=== PATIENT | male | born 1955 | race African-American/Black ===

== ENCOUNTER 2020-03-05 20:37 | Inpatient (IN) | payer SELFPAY ==
[~2020-03-05] VITALS: Ht 165.1 cm; Wt 48.1 kg
[2020-03-05] MEDS ORDERED: FUROSEMIDE40 MG ORAL (20:38)
[2020-03-05] MEDS ORDERED: SPIRONOLACTONE100 MG ORAL (20:38)
[2020-03-05 20:44] VITALS: BP 175/113
[2020-03-05] MEDS ORDERED: dilTIAZem HCl 25mg/5ml Inj IVP ONE ×2 (20:45→21:00)
[2020-03-05] MEDS ORDERED: dilTIAZem HCl 125mg/25ml Inj IVPB ONE (20:58)
--- NOTE | 2020-03-05 21:01 | Emergency Room Report ---
History of Present Illness General Chief Complaint: Chest Pain Source: Patient Present Illness HPI Disclaimer: Please note that this report is being documented using [employer] technology. This can lead to erroneous entry secondary to incorrect interpretation by the dictating instrument. HPI: 64-year-old male history of hypertension, cardiac arrhythmia presents for evaluation of chest pain. Patient states he has been feeling fatigued for the past 3 days but this afternoon began to experience palpitations, chest pressure and shortness of breath. EMS found him tachycardic into the 140s but vital signs otherwise stable. He was complaining of mild shortness of breath but no hypoxia was noted. Patient is taking digoxin but is been without his medications for the past 3 weeks. 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 He states in the he had an intra-cardiac procedure done which sounds like he repaired a VSD. He is also told he might have some heart failure. 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 EOMI. Cardiovascular: Tachycardic. Resp: Tachypnea. No cough, wheezing or crackles appreciated Abdomen: Abdomen is soft, nondistended. Nontender Skin: Intact. No abrasions, laceration or rash over the exposed skin MSK: Normal tone and bulk. Moving all extremities. No obvious deformity. Neuro: Awake and alert. Mentating appropriately. Procedures Critical Care Time Critical Care Time Total critical care time: Approximately 45 minutes Due to a high probability of clinically significant, life threatening deterioration, the patient required the highest level of preparedness to intervene emergently and I personally spent this critical care time directly and personally managing the patient. This critical care time included obtaining a history, examining the patient, pulse oximetry, ordering and reviewing studies , ordering treatments, evaluating response to treatment and updating management plan as needed, frequent reassessment and discussion with other providers as well as arranging for ultimate disposition. This critical to care time was performed to assess and manage the high probability of life-threatening deterioration that could result in multiorgan failure. This critical care time is separate from the separately billable procedures and treating other patients. Medical Decision Making Diagnostic Impression: Primary Impression: Chest pain Additional Impressions: Atrial flutter with rapid ventricular response Pneumonia Elevated troponin level BRIGHT (acute kidney injury) ER Course 64-year-old male history of unspecified arrhythmia and prior history of cardiac surgery in the presents for evaluation of palpitations. Patient found to be in rapid atrial flutter with apparent 2-1 conduction. Vital signs were otherwise stable patient is afebrile though complaining of shortness of breath for the past 3 days. He has been without his digoxin, furosemide or other medications for 3 months after he lost his [employer] insurance. Patient was given 2 IV boluses of Cardizem which brought his heart rates below 90 bpm. He was loaded with 60 mg ordered Cardizem as well. Labs otherwise show an acute kidney injury with elevated BUN/creatinine, elevated troponin and BN peptide. Patient's x-ray is concerning for right lower lobe pneumonia and cardiomegaly with mild vascular congestion bilaterally. Patient was treated with Zosyn and blood cultures were sent. He is stable condition currently feeling better though will be sent to the stepdown unit for close monitoring and further care. He is admitted to panel physician, Dr. Thao. Laboratory Tests Test 03/05/20 20:45 White Blood Count 7.7 K/UL (4.8-10.8) Red Blood Count 4.15 M/UL (4.70-6.10) L Hemoglobin 12.9 G/DL (14.2-18.0) L Hematocrit 40.0 % (42.0-52.0) L Mean Corpuscular Volume 96 FL (80-99) Mean Corpuscular Hemoglobin 31.0 PG (27.0-31.0) Mean Corpuscular Hemoglobin Concent 32.2 G/DL (32.0-36.0) Red Cell Distribution Width 13.5 % (11.6-14.8) Platelet Count 172 K/UL (150-450) Mean Platelet Volume 8.0 FL (6.5-10.1) Neutrophils (%) (Auto) 69.5 % (45.0-75.0) Lymphocytes (%) (Auto) 20.5 % (20.0-45.0) Monocytes (%) (Auto) 8.7 % (1.0-10.0) Eosinophils (%) (Auto) 0.3 % (0.0-3.0) Basophils (%) (Auto) 0.9 % (0.0-2.0) Prothrombin Time 16.9 SEC (9.30-11.50) H Prothrombin Time INR 1.6 (0.9-1.1) H Activated Partial Thromboplast Time 28 SEC (23-33) Sodium Level 138 MMOL/L (136-145) Potassium Level 4.7 MMOL/L (3.5-5.1) Chloride Level 103 MMOL/L (98-107) Carbon Dioxide Level 21 MMOL/L (21-32) Anion Gap 15 mmol/L (5-15) Blood Urea Nitrogen 44 mg/dL (7-18) H Creatinine 1.5 MG/DL (0.55-1.30) H Estimated Glomerular Filtration Rate 47.1 mL/min (>60) Glucose Level 128 MG/DL (74-106) H Calcium Level 8.1 MG/DL (8.5-10.1) L Total Bilirubin 2.4 MG/DL (0.2-1.0) H Direct Bilirubin 0.9 MG/DL (0.0-0.3) H Aspartate Amino Transferase (AST) 97 U/L (15-37) H Alanine Aminotransferase (ALT) 88 U/L (12-78) H Alkaline Phosphatase 142 U/L (46-116) H Troponin I 0.285 ng/mL (0.000-0.056) Pro-B-Type Natriuretic Peptide 7030 pg/mL (0-125) H Total Protein 7.5 G/DL (6.4-8.2) Albumin 3.3 G/DL (3.4-5.0) L Globulin 4.2 g/dL Albumin/Globulin Ratio 0.8 (1.0-2.7) L Digoxin Level < 0.2 NG/ML (0.5-2.0) L Microbiology Date/Time Source Procedure Growth Status 8/25/20 20:45 Nasopharynx SARS-CoV-2 RdRp Gene Assay - Final Complete EKG Diagnostic Results EKG Time: 20:35 Other Impression Atrial flutter with apparent 2-1 conduction. ASA given to the pt in ED: Yes PA Scribe Text EKG post rate control Time: 2120 Impression: Persistent atrial flutter with variable AV block. Rate now controlled at 79 bpm. [place] is within normal limits. No acute ST segment changes apparent. Intervals within normal limits. Rhythm Strip Diag. Results Rhythm Strip Time: 20:35 EP Interpretation: yes Rate: 140s Chest X-Ray Diagnostic Results Chest X-Ray Diagnostic Results : Chest X-Ray Ordered: Yes # of Views/Limited/Complete: 1 View Indication: Shortness of Breath EP Interpretation: Yes Interpretation: other - Right lower lobe infiltrate, cardiomegaly, mild vascular congestion Impression: Other - Right lower lobe pneumonia, cardiomegaly, vascular congestion Electronically Signed by: Electronically signed by Dr. Kevin Ibarra Last Vital Signs Date Time Temp Pulse Resp B/P (MAP) Pulse Ox O2 Delivery O2 Flow Rate FiO2 03/05/20 20:48 148 166/97 03/05/20 20:34 98.2 18 93 Room Air Disposition: ADMITTED INPATIENT Condition: Serious Kevin Ibarra MD Mar 05, 2020 21:01
[2020-03-05 21:14] LABS: BASOPHILS % (AUTO) 0.9 % (0.0-2.0); EOSINOPHILS % (AUTO) 0.3 % (0.0-3.0); HEMOGLOBIN 12.9 G/DL (14.2-18.0); LYMPHOCYTES % (AUTO) 20.5 % (20.0-45.0); MEAN CORPUSCULAR VOLUME 96 FL (80-99); MONOCYTES % (AUTO) 8.7 % (1.0-10.0); NEUTROPHILS % (AUTO) 69.5 % (45.0-75.0); PLATELET COUNT 172 K/UL (150-450); RED BLOOD COUNT 4.15 M/UL (4.70-6.10); RED CELL DISTRIBUTION WIDTH 13.5 % (11.6-14.8); WHITE BLOOD COUNT 7.7 K/UL (4.8-10.8)
[2020-03-05] MEDS ORDERED: dilTIAZem HCl 60mg tab ORAL ONE (21:15)
[2020-03-05 21:17] LABS: INR 1.6 (0.9-1.1)
[2020-03-05 21:21] LABS: ANION GAP 15 mmol/L (5-15); BLOOD UREA NITROGEN 44 mg/dL (7-18); CALCIUM 8.1 MG/DL (8.5-10.1); CARBON DIOXIDE 21 MMOL/L (21-32); CHLORIDE 103 MMOL/L (98-107); CREATININE 1.5 MG/DL (0.55-1.30); POTASSIUM 4.7 MMOL/L (3.5-5.1); SODIUM 138 MMOL/L (136-145)
[2020-03-05 21:32] LABS: ALANINE AMINOTRANSFERASE 88 U/L (12-78); ALBUMIN 3.3 G/DL (3.4-5.0); ALBUMIN/GLOBULIN RATIO 0.8 (1.0-2.7); ALKALINE PHOSPHATASE 142 U/L (46-116); ASPARTATE AMINO TRANSFERASE 97 U/L (15-37); BILIRUBIN,TOTAL 2.4 MG/DL (0.2-1.0)
[2020-03-05 21:35] LABS: BILIRUBIN,DIRECT 0.9 MG/DL (0.0-0.3)
[2020-03-05 21:51] VITALS: BP 143/75
[2020-03-05] MEDS ORDERED: Piperacillin/Tazobactam 3.375 GM in NS 110 ML IVPB ONE (22:30)
[2020-03-05] MEDS ORDERED: DIGOXIN250 MCG ORAL (22:48)
[2020-03-05 23:00] VITALS: BP 180/84
[2020-03-06 00:54] VITALS: BP 168/62
[2020-03-06] MEDS ORDERED: Vancomycin 750mg/NS 275ml IVPB SCH ×2 (03:00)
[2020-03-06 04:00] VITALS: BP 145/73
[2020-03-06] MEDS: Piperacillin/Tazobactam 3.375 GM in NS 110 ML IVPB SCH ×3 (05:00→21:18)
[2020-03-06] MEDS: dilTIAZem HCl 60mg tab ORAL SCH ×3 (05:01→21:17)
[2020-03-06 05:46] LABS: HEMATOCRIT 41.1 % (42.0-52.0); HEMOGLOBIN 13.2 G/DL (14.2-18.0); MEAN CORPUSCULAR VOLUME 95 FL (80-99); PLATELET COUNT 162 K/UL (150-450); RED BLOOD COUNT 4.31 M/UL (4.70-6.10); RED CELL DISTRIBUTION WIDTH 12.8 % (11.6-14.8); WHITE BLOOD COUNT 8.5 K/UL (4.8-10.8)
[2020-03-06 06:13] LABS: ALANINE AMINOTRANSFERASE 100 U/L (12-78); ALBUMIN 3.4 G/DL (3.4-5.0); ALBUMIN/GLOBULIN RATIO 0.8 (1.0-2.7); ALKALINE PHOSPHATASE 145 U/L (46-116); ANION GAP 12 mmol/L (5-15); ASPARTATE AMINO TRANSFERASE 106 U/L (15-37); BILIRUBIN,TOTAL 2.6 MG/DL (0.2-1.0); BLOOD UREA NITROGEN 44 mg/dL (7-18); CALCIUM 8.5 MG/DL (8.5-10.1); CARBON DIOXIDE 25 MMOL/L (21-32); CHLORIDE 103 MMOL/L (98-107); CHOLESTEROL 97 MG/DL (< 200); CREATININE 1.5 MG/DL (0.55-1.30); HDL CHOLESTEROL 25 MG/DL (40-60); POTASSIUM 4.2 MMOL/L (3.5-5.1); SODIUM 140 MMOL/L (136-145); TRIGLYCERIDES 48 MG/DL (30-150)
[2020-03-06 06:16] LABS: BILIRUBIN,DIRECT 0.9 MG/DL (0.0-0.3)
[2020-03-06 08:00] VITALS: BP 128/79
[2020-03-06] MEDS ORDERED: Aspirin Baby 81mg ORAL SCH (09:00)
[2020-03-06] MEDS ORDERED: Spironolactone 50mg tab ORAL SCH (09:00)
--- NOTE | 2020-03-06 09:33 | Diagnostic Imaging Report ---
Indication: Chest pain Technique: XRAY Chest 1v Comparison: None Findings: Heart is enlarged. Mediastinal contours are sharp. There are atherosclerotic vascular calcifications in the aorta. There is pulmonary vessel congestion and perihilar prominence. There is a small right pleural effusion with adjacent opacities at the right base. There is a square-shaped radiodensity projecting over the anterior right first rib which may be external to the patient. There are degenerative changes in the spine. Impression: * Cardiomegaly and pulmonary vascular congestion/mild interstitial edema. * Small right pleural effusion. Adjacent opacities at the right base may related to compressive atelectasis. Pneumonia needs to be excluded clinically. * Square-shaped radiodensity projecting over the anterior right first rib. This may be external to the patient. Correlate with physical exam.
[2020-03-06] MEDS ORDERED: Digoxin 0.5mg/2ml Inj IVP SCH (11:00)
[2020-03-06 12:00] VITALS: BP 128/70
[2020-03-06] MEDS ORDERED: NS 275ml ONE (14:25)
[2020-03-06] MEDS ORDERED: Tubing IV Secondary IV ONE (14:25)
[2020-03-06 15:49] VITALS: BP 114/78
[2020-03-06] MEDS ORDERED: HYDROCHLOROTHIA25 MG ORAL (18:25)
[2020-03-06 20:00] VITALS: BP 147/68
[2020-03-06] MEDS ORDERED: Lisinopril 10mg tab ORAL ONE (23:15)
[2020-03-07] VITALS: BP 148/67
--- NOTE | 2020-03-07 00:45 | History and Physical Report ---
DATE OF ADMISSION: 03/05/2020 REASON FOR ADMISSION: Chest pain and rapid atrial flutter. HISTORY OF PRESENT ILLNESS: This 64-year-old male, who has a known history of structural heart disease. He underwent repair of a patent ductus arteriosus approximately 15 years ago. He ran out of medications several weeks ago as his insurance lapsed. He notes that he has had palpitations, chest pain, and some shortness of breath. He came to the emergency room and was noted to have have significantly elevated blood pressure and rapid atrial flutter. PAST MEDICAL HISTORY: As noted includes hypertension and a repair of PDA. ALLERGIES: None known. SOCIAL HISTORY: Negative for smoking, alcohol, or substance abuse. FAMILY HISTORY: Noncontributory. REVIEW OF SYSTEMS: Performed all negative other than noted above. PHYSICAL EXAMINATION: VITAL SIGNS: In the emergency room, blood pressure 175/113, pulse 148, respirations 18, and afebrile. Subsequently, 145/73, pulse 69, and respirations 24. NECK: Jugular venous pressure normal. LUNGS: Clear. CARDIAC: Irregularly irregular rhythm. Normal S1, S2. A 1/6 systolic murmur at base. ABDOMEN: Soft. EXTREMITIES: No edema. LABORATORY DATA: White count 7.7 and hemoglobin 12.9. Troponin 0.285. BUN 44 and creatinine 1.5. Potassium 4.7. Albumin 3.3. Pro-natriuretic peptide 7000. EKG with rapid atrial flutter, nonspecific ST change. Chest x-ray, pulmonary venous congestion and cardiomegaly. IMPRESSION: 1. Paroxysmal atrial flutter with rapid ventricular response. 2. Acute myocardial ischemia and possible [id number] myocardial infarction. 3. Acute on chronic systolic and diastolic congestive heart failure. 4. Acute versus chronic kidney injury. PLAN: 1. Intravenous diltiazem. 2. Maintenance dose digitalis. 3. Diuresis. 4. Anti-failure regimen. 5. Reassess for long-term anticoagulation. 6. An attempt to expand database. Lewis Thao M.D. DR: REZA JOB#: [id number] CC:
[2020-03-07] MEDS ORDERED: Vancomycin 750 MG in NS 275 ML IVPB SCH (03:00)
[2020-03-07 04:00] VITALS: BP 135/61
[2020-03-07] MEDS: dilTIAZem HCl 60mg tab ORAL SCH ×3 (05:50→22:00)
[2020-03-07] MEDS: Piperacillin/Tazobactam 3.375 GM in NS 110 ML IVPB SCH ×3 (06:24→21:26)
[2020-03-07 06:59] LABS: BASOPHILS % (AUTO) 0.6 % (0.0-2.0); EOSINOPHILS % (AUTO) 0.4 % (0.0-3.0); HEMATOCRIT 41.4 % (42.0-52.0); HEMOGLOBIN 13.6 G/DL (14.2-18.0); LYMPHOCYTES % (AUTO) 9.3 % (20.0-45.0); MEAN CORPUSCULAR VOLUME 95 FL (80-99); MONOCYTES % (AUTO) 9.5 % (1.0-10.0); NEUTROPHILS % (AUTO) 80.2 % (45.0-75.0); PLATELET COUNT 157 K/UL (150-450); RED BLOOD COUNT 4.37 M/UL (4.70-6.10); WHITE BLOOD COUNT 10.1 K/UL (4.8-10.8)
[2020-03-07 07:17] LABS: ALANINE AMINOTRANSFERASE 86 U/L (12-78); ALBUMIN 3.2 G/DL (3.4-5.0); ALBUMIN/GLOBULIN RATIO 0.8 (1.0-2.7); ALKALINE PHOSPHATASE 118 U/L (46-116); ANION GAP 3 mmol/L (5-15); ASPARTATE AMINO TRANSFERASE 66 U/L (15-37); BILIRUBIN,TOTAL 2.3 MG/DL (0.2-1.0); BLOOD UREA NITROGEN 35 mg/dL (7-18); CALCIUM 8.6 MG/DL (8.5-10.1); CARBON DIOXIDE 35 MMOL/L (21-32); CHLORIDE 105 MMOL/L (98-107); CREATININE 1.5 MG/DL (0.55-1.30); POTASSIUM 3.9 MMOL/L (3.5-5.1); SODIUM 143 MMOL/L (136-145)
[2020-03-07 07:32] LABS: BILIRUBIN,DIRECT 0.8 MG/DL (0.0-0.3)
[2020-03-07 08:00] VITALS: BP 121/52
[2020-03-07] MEDS: Spironolactone 50mg tab ORAL SCH (08:54)
[2020-03-07] MEDS: Lisinopril 10mg tab ORAL SCH (08:55)
[2020-03-07] MEDS: Aspirin Baby 81mg ORAL SCH (08:55)
[2020-03-07 12:00] VITALS: BP 121/57
[2020-03-07] MEDS ORDERED: Docusate 250mg cap ORAL SCH (12:30)
[2020-03-07] MEDS ORDERED: Milk of Magnesia 30ml Ud ORAL SCH (12:30)
[2020-03-07] MEDS ORDERED: Milk of Magnesia 30ml Ud ORAL PRN (12:30)
--- NOTE | 2020-03-07 14:09 | Diagnostic Imaging Report ---
Indication: Shortness of breath Technique: 2 views of the chest Comparison: 03/05/2020 single view chest Findings: Moderate size right pleural effusion is again demonstrated. Lateral view indicates that there is a smaller left pleural effusion as well. The lungs are clear. Previously demonstrated vascular congestion is no longer evident Prominent right pulmonary hilum again noted. Impression: Bilateral pleural effusions, right greater than left. That on the right was demonstrated previously and unchanged
[2020-03-07 16:00] VITALS: BP 111/50
[2020-03-07] MEDS: Docusate 100mg cap ORAL SCH (17:28)
[2020-03-07 20:00] VITALS: BP 111/69
[2020-03-08] VITALS: BP 129/60
--- NOTE | 2020-03-08 01:59 | Cardiology Progress Note ---
Subjective DATE OF SERVICE: Mar 07, 2020 Less SOB C/O constipation CXR (03/07) reveals no infiltrate. Resolved CHF. Right pleural eff'n (mod), and small left pleural eff'n. Objective Last 24 Hour Vital Signs Date Time Temp Pulse Resp B/P (MAP) Pulse Ox O2 Delivery O2 Flow Rate FiO2 03/08/20 00:00 74 03/08/20 00:00 98.1 74 18 129/60 (83) 98 03/08/20 00:00 Room Air 03/07/20 22:00 66 03/07/20 20:00 Room Air 03/07/20 20:00 97.9 58 16 111/69 (83) 98 03/07/20 20:00 58 03/07/20 16:00 Room Air 03/07/20 16:00 97.8 58 20 111/50 (70) 98 03/07/20 15:26 56 03/07/20 13:24 74 121/57 03/07/20 12:00 Room Air 03/07/20 12:00 98.1 73 20 121/57 (78) 100 03/07/20 11:44 67 03/07/20 08:55 121/52 03/07/20 08:00 Room Air 03/07/20 08:00 98.1 74 20 121/52 (75) 100 03/07/20 07:22 74 03/07/20 05:50 73 135/61 03/07/20 04:00 98.1 73 20 135/61 (85) 95 03/07/20 04:00 Room Air 03/07/20 04:00 73 RHYTHM: other LUNGS: diminished breath sounds - Rt CARDIAC: normal S1 and S2, irregularly irregular ABDOMEN: normal bowel sounds, soft EXTREMITIES: trace edema Laboratory Tests Test 03/07/20 06:25 White Blood Count 10.1 K/UL (4.8-10.8) Red Blood Count 4.37 M/UL (4.70-6.10) L Hemoglobin 13.6 G/DL (14.2-18.0) L Hematocrit 41.4 % (42.0-52.0) L Mean Corpuscular Volume 95 FL (80-99) Mean Corpuscular Hemoglobin 31.0 PG (27.0-31.0) Mean Corpuscular Hemoglobin Concent 32.7 G/DL (32.0-36.0) Red Cell Distribution Width 13.0 % (11.6-14.8) Platelet Count 157 K/UL (150-450) Mean Platelet Volume 7.8 FL (6.5-10.1) Neutrophils (%) (Auto) 80.2 % (45.0-75.0) H Lymphocytes (%) (Auto) 9.3 % (20.0-45.0) L Monocytes (%) (Auto) 9.5 % (1.0-10.0) Eosinophils (%) (Auto) 0.4 % (0.0-3.0) Basophils (%) (Auto) 0.6 % (0.0-2.0) Sodium Level 143 MMOL/L (136-145) Potassium Level 3.9 MMOL/L (3.5-5.1) Chloride Level 105 MMOL/L (98-107) Carbon Dioxide Level 35 MMOL/L (21-32) H Anion Gap 3 mmol/L (5-15) L Blood Urea Nitrogen 35 mg/dL (7-18) H Creatinine 1.5 MG/DL (0.55-1.30) H Estimat Glomerular Filtration Rate 57.1 mL/min (>60) Glucose Level 91 MG/DL (74-106) Calcium Level 8.6 MG/DL (8.5-10.1) Total Bilirubin 2.3 MG/DL (0.2-1.0) H Direct Bilirubin 0.8 MG/DL (0.0-0.3) H Aspartate Amino Transf (AST/SGOT) 66 U/L (15-37) H Alanine Aminotransferase (ALT/SGPT) 86 U/L (12-78) H Alkaline Phosphatase 118 U/L (46-116) H Troponin I 0.737 ng/mL (0.000-0.056) Pro-B-Type Natriuretic Peptide 3157 pg/mL (0-125) H Total Protein 7.4 G/DL (6.4-8.2) Albumin 3.2 G/DL (3.4-5.0) L Globulin 4.2 g/dL Albumin/Globulin Ratio 0.8 (1.0-2.7) L Microbiology Date/Time Source Procedure Growth Status 03/05/20 20:45 Blood Blood Culture - Preliminary NO GROWTH AFTER 48 HOURS Resulted 03/05/20 20:30 Blood Blood Culture - Preliminary NO GROWTH AFTER 48 HOURS Resulted 03/05/20 20:45 Nasopharynx SARS-CoV-2 RdRp Gene Assay - Final Complete EKG INTERPRETATION: 2D Echo reviewed Assessment/Plan Assessment/Plan No signs PNA Atrial flutter, chr - now rate controlled Pleural effusions Ac/chr systolic and diastolic CHF Hx PDA repair NSTE myocardial infarction Constipation DIuresis DC antimicrobials Continue diltiazem for rate control Titrate ACEi dosing Anti plt therapy; reassess risk:benefit of anticoagulation prior to discharge F/U troponin Bowel regimen Lewis Thao MD Mar 08, 2020 01:59
[2020-03-08 04:00] VITALS: BP 132/63
[2020-03-08 06:37] LABS: ANION GAP 5 mmol/L (5-15); BLOOD UREA NITROGEN 31 mg/dL (7-18); CALCIUM 8.1 MG/DL (8.5-10.1); CARBON DIOXIDE 32 MMOL/L (21-32); CHLORIDE 105 MMOL/L (98-107); CREATININE 1.3 MG/DL (0.55-1.30); SODIUM 141 MMOL/L (136-145)
[2020-03-08 08:00] VITALS: BP 133/56
[2020-03-08] MEDS: Spironolactone 50mg tab ORAL SCH (08:51)
[2020-03-08] MEDS: Aspirin Baby 81mg ORAL SCH (08:51)
[2020-03-08] MEDS: Docusate 100mg cap ORAL SCH (08:51)
[2020-03-08] MEDS: Lisinopril 10mg tab ORAL SCH (08:51)
[2020-03-08] MEDS ORDERED: dilTIAZem HCl CD 180mg cap ORAL SCH (09:00)
[2020-03-08] MEDS ORDERED: Furosemide 40mg tab ORAL SCH (09:00)
[2020-03-08 11:56] VITALS: BP 128/70
[2020-03-08] MEDS ORDERED: CARDIZEM CD180 MG ORAL (15:43)
[2020-03-08] MEDS ORDERED: ZESTRIL10 M1 ORAL (15:43)
[2020-03-08 16:00] VITALS: BP 128/60
[2020-03-08] MEDS ORDERED: Tubing IV Secondary IV ONE (17:13)
[2020-03-08] MEDS ORDERED: NS 275ml ONE (17:13)
[2020-03-09] MEDS ORDERED: Lisinopril 10mg tab ORAL SCH (09:00)
[2020-03-09] MEDS ORDERED: Spironolactone 25mg tab ORAL SCH (09:00)
--- NOTE | 2020-03-10 14:34 | Discharge Summary ---
Discharge Summary Discharge Summary _ DATE OF ADMISSION: 03/05/2020 DATE OF DISCHARGE: 03/08/2020 DISCHARGED BY: Dr. Lewis Thao BRIEF HOSPITAL COURSE: Patient is an 84-year-old male, who has a known history of structural heart disease. He underwent repair of a patent ductus arteriosus approximately 15 years ago. He ran out of medication several weeks ago as his insurance lapsed. He noted palpitations, chest pain and shortness of breath. EMS found him tachycardic into the 140s but vital signs were otherwise stable. Patient is on digoxin and furosemide but has been without his medications for the past 3 weeks. Upon evaluation at the ED, blood pressure was 175/113, heart rate 148. He was found to be in rapid atrial flutter with apparent 2-1 conduction. He was given 2 IV boluses of Cardizem which brought the heart rate below 90. He was loaded with 60 mg Cardizem p.o. Blood work showed acute kidney injury with elevated BUN and creatinine. Troponin was 0.285. proBNP was 7030. Chest x-ray was concerning for right lower lobe pneumonia and cardiomegaly with mild vascular congestion bilaterally. He was treated with Zosyn. Cultures were sent. He was admitted for evaluation of chest pain, rapid atrial flutter, pneumonia, elevated troponin and kidney injury. He was admitted to monitored floor. He was given intravenous diltiazem. He was continued on maintenance dose digitalis. He was given diuresis. He was placed on anti-failure regimen. He was given prophylaxis IV antibiotics. Repeat chest x-ray did not show any infiltrates. CHF resolved. He was continued on diuresis. Continued on diltiazem for rate control. He was given EVENS inhibitor's. Blood culture did not isolate any growth. Heart rate in good control. Patient was cleared for discharge home. To continue Cardizem 180 mg daily and lisinopril 20 mg daily. Continue Lasix and Spironolactone. Discontinue digoxin and hydrochlorothiazide. Patient was advised to follow-up with PMD. FINAL DIAGNOSES: Atrial flutter, chronicnow rate controlled Pleural effusion Acute on chronic systolic and diastolic CHF History of patent ductus arteriosus repair Non-ST elevated myocardial infarction Constipation DISPOSITION: Patient was discharged home. DISCHARGE MEDICATIONS: Refer to Discharge Medication List. DISCHARGE INSTRUCTIONS: Follow-up in a week. I have been assigned to complete a discharge summary on this account, I was not involved with the patient's management.--KIN Garland Jacqueline Robles NP Mar 10, 2020 14:34
== END 2020-03-08 17:14 | disposition home or self-care (01) | DRG 280 ==
LOC: EDBD 20:37 → EMR 21:00 → 2W 21:31 → EDBEDREQ 21:35 → EDBEDREQSVC 21:35 → EDBEDREQTM 21:35 → EDBEDREQ 21:49 → 2E 03-06 15:56
DX: I21.4 Non-ST elevation (NSTEMI) myocardial infarction (principal); I50.43 Acute on chronic combined systolic (congestive) and diastolic (congestive) heart failure; N17.9 Acute kidney failure, unspecified; I48.92 Unspecified atrial flutter; N18.9 Chronic kidney disease, unspecified; K59.00 Constipation, unspecified
CPT/HCPCS: 36415; 71045; 71046; 80048; 80053; 80061; 80162; 82248; 83735; 83880; 84443; 84484; 85025; 85610; 85730; 87040; 87070; 87205; 93005; 93306; 96365; 96375; 99291; U0002